=== PATIENT | male | born 1995 | race African-American/Black ===

== ENCOUNTER 2025-03-05 21:35 | Emergency (ER) | payer OTHER ==
[~2025-03-05] VITALS: Ht 165.1 cm; Wt 77.1 kg
[2025-03-05 21:44] VITALS: TEMP 98.8
[2025-03-05 23:03] VITALS: BP 123/81
[2025-03-06 00:05] VITALS: O2SAT 100
== END 2025-03-06 00:06 ==
LOC: ER 21:38
DX: Z13.89 Encounter for screening for other disorder (principal); F17.200 Nicotine dependence, unspecified, uncomplicated; Z59.00 Homelessness unspecified
CPT/HCPCS: 74018